=== PATIENT | female | born 1990 | race African-American/Black ===

== ENCOUNTER 2023-03-31 16:25 | Emergency (ER) | payer OTHER, SELFPAY ==
[2023-03-31 17:26] VITALS: BP 148/80; PULSE 78; RESP 16; TEMP 36.9; O2SAT 100; BMI 33.8
--- NOTE | 2023-03-31 17:26 | ED.EAR ---
HPI - Ear Problem General Chief complaint: Ear Problems Stated complaint: Ear pain Time Seen by Provider: 03/31/23 17:37 Source: patient Mode of arrival: ambulatory Limitations: no limitations History of Present Illness HPI Narrative: Patient is a 32-year-old female who presents to the emergency department for evaluation of ear pain, she reports that 10 days ago to urgent care, received ear drops and motrin without improvement. 6 days ago she saw PCP, was having worsening pain to the left ear, facial swelling, muffled hearing, she was given a prescription for Augmentin (ten-day course) as well as tramadol. Pain has improved to left ear, but muffled hearing still present. However, she came here today because She is currently reporting pain to the right ear, onset yesterday, and is having muffled hearing and pressure, with active drainage similar to the left. She is awaiting evaluation from an market researcher. Review of Systems Review of Systems: Yes all other systems are reviewed and are negative PMFSH Past Medical History Attestation statement: The following information was validated with the patient. Source: old records reviewed Social History Social History Advance Directives: No Advance Directives Information Provided: No Physical Exam Vital Signs: Vital Signs: Last Vital Signs Temp 98.5 F 03/31/23 17:26 Pulse 78 03/31/23 17:26 Resp 16 03/31/23 17:26 BP 148/80 H 03/31/23 17:26 Pulse Ox 100 03/31/23 17:26 O2 Del Method Room Air 03/31/23 17:26 BMI result Body Mass Index 33.8 Appearance: Alert.?Oriented to person, place and time. No acute distress.?Normal affect. Head: Normocephalic, atraumatic. No head, sinus or TMJ tenderness.? Eyes: Sclera white, conjunctiva pink. PERRL, 3 mm bilaterally. Ears: Bilateral ear canals with copious amounts of purulent drainage, difficulty visualizing TM bilaterally with drainage. No mastoid tenderness. No lymphadenopathy. Nose: Nasal mucosa pink and moist with midline septum, nares patent bilaterally.? Mouth/ Throat: Oral mucosa pink and moist without lesions. Pharynx without exudate, tonsils symmetric, no adenopathy.? Neck: Normal inspection.? Neck supple.?? CVS: Heart sounds normal. Normal heart rate and rhythm.? Pulses normal.?? Respiratory: No respiratory distress.? Lung sounds clear to auscultation bilaterally?? Abdomen: Soft and non-tender. Normoactive bowel sounds. Skin: Skin warm and dry.? Normal skin color.? ?? Extremities: No lower extremity edema.? Neuro: Moves all extremities spontaneously. Sensation intact bilaterally. No focal neuro deficits. Ambulates with normal steady gait. Medical Decision Making Medical Decision Making [facility] Narrative: Patient is a 32-year-old female who presents emergency department for evaluation of ear pain as noted in HPI. History of physical examination most consistent with acute otitis media, it is unclear whether spontaneous rupture of tympanic membrane has occurred as this is difficult to visualize due to copious drainage. Drainage may in part be in relation to otitis externa, however was previously receiving antibiotic ear drops which were discontinued due to concern for potential ruptured TM. Physical examination not consistent with mastoiditis, low suspicion for malignant otitis externa. She is nontoxic, afebrile, without tachycardia. She is already prescribed a course of Augmentin, at this time would not add any additional antibiotics, advised outpatient follow-up with her PCP/ENT specialist. Reviewed worrisome signs and symptoms that would warrant re-evaluation in the emergency department. Stable for discharge. Differential Diagnosis Differential Diagnoses: The differential diagnosis associated with the presentation includes (Acute otitis media with or without spontaneous rupture of the tympanic membrane, otitis media with effusion, otitis externa, herpes zoster, malignant otitis externa) Tests considered The following testing was considered but not selected: I considered serum labs and possible CT for evaluation mastoiditis physical examination is not consistent, nontoxic, afebrile as noted in MDM, labs and imaging deferred at this time Prescription Management I considered prescription management with: Pain Medication (However patient is already prescribed tramadol by PCP, would not add additional prescription medications aside from OTC acetaminophen/ibuprofen) and Antibiotic (Currently prescribed Augmentin, advised to continue taking course in its entirety) Discharge Plan Discharge Clinical Impression: Acute otitis media Qualifiers: Laterality: bilateral Patient Disposition: Home, Self-Care Instructions: Ear Infection (ED) Additional Instructions: As discussed, please continue taking the antibiotics as prescribed by your primary care provider. Please contact their office/the market researcher tomorrow to arrange for follow-up. You can take ibuprofen 200 mg, 3 tablets (600mg) every 6-8 hours as needed for pain, in addition to Tylenol 500 mg, 2 tablets (1,000mg) every 4-6 hours as needed for pain, but not to exceed 3 doses daily (3,000mg).? If you develop fevers, shaking chills, confusion, lightheadedness, severe headache, nausea with persistent vomiting, or any new/worsening symptoms or concerns you may return back to emergency department for evaluation. Interventions: ED Discharge Assessment Last Done: 03/31/23 18:22 Discharge Date/Time: 03/31/23 18:23
== END 2023-03-31 18:23 | disposition home or self-care (01) ==
PROVIDERS: Emergency Provider Internal Medicine
DX: H66.93 Otitis media, unspecified, bilateral (principal); H92.03 Otalgia, bilateral
CPT/HCPCS: 99282

== ENCOUNTER 2024-06-26 08:50 | Emergency (ER) | payer OTHER, SELFPAY ==
[2024-06-26 09:11] VITALS: BP 154/80; PULSE 77; RESP 16; TEMP 37; O2SAT 100; BMI 33.8
--- NOTE | 2024-06-26 09:34 | ED_ITS ---
HPI - General Adult General Chief complaint: Extremity Problem Stated complaint: Infected toe Time Seen by Provider: 06/26/24 09:33 Source: patient Mode of arrival: ambulatory Limitations: no limitations History of Present Illness ED Provider: Camilla Davenport PA-C HPI narrative: Patient is a 33 year old assigned female at with no reported medical history presenting to the emergency department today with right great toe swelling. Patient states that over a week ago she had her toes done and the next day she began to have swelling of the right great toe. Patient states that she was seen at an urgent care where they prescribed her an antibiotic. Patient states that she finished it but the swelling came back so she saw her PCP yesterday who prescribed doxycycline and keflex. Patient states that she wanted another opinion on the toe to make sure nothing needs to be done. Patient denies any dizziness, lightheadedness, abdominal pain, nausea, vomiting, fever, chills, blurry vision, double vision, loss of vision, chest pain, difficulty breathing, shortness of breath, back pain, night sweats, pain with urination, increased urinary frequency, increased urinary urgency, blood in her urine or stool, syncope or a near syncopal episode, recent trauma or falls, bowel incontinence, bladder incontinence, or any other complaints at this time. Relieving factors: none Exacerbating factors: none Associated symptoms: denies other symptoms Related Data Allergies Allergy/AdvReac Type Severity Reaction Status Date / Time No Known Allergies Allergy Verified 06/26/24 09:16 Review of Systems Constitutional: Constitutional: Reports no additional constitutional complaints, Denies chills, Denies fever(s) and Denies night sweats Eyes: Eyes: Reports no additional eye complaints, Denies blurry vision, Denies change in vision, Denies diplopia, Denies eye discharge, Denies loss of vision and Denies eye pain ENT: Denies dizziness Cardiovascular: Cardiovascular: Reports no additional cardiovascular complaints, Denies chest pain, Denies lightheadedness, Denies Loss of Consciousness and Denies dyspnea Respiratory: Respiratory: Reports no additional respiratory complaints and Denies dyspnea Gastrointestinal: Gastrointestinal: Reports no additional gastrointestinal complaints, Denies abdominal pain, Denies melena, Denies hematochezia, Denies change in bowel habits and Denies change in stool character Genitourinary: Genitourinary: Denies hematuria, Denies urinary frequency, Denies dysuria, Denies urinary incontinence, Denies urinary hesitancy and Denies urinary urgency Musculoskeletal: Musculoskeletal: Reports no additional musculoskeletal complaints, Denies numbness and Denies tingling Integumentary/Breasts: Comments: right great toe pain / swelling Neurologic: Denies dizziness, Denies loss of vision, Denies numbness and Denies tingling Psychiatric: Psychiatric: Reports no additional psychiatric complaints Endocrine: Endocrine: Reports no additional endocrine complaints Hematologic/Lymphatic: Hematologic/Lymphatic: Reports no additional hematologic/lymphatic complaints Allergic/Immunologic: Allergic/Immunologic: Reports no additional allergic/immunologic complaints [facility] Past Medical History Attestation statement: The following information was validated with the patient. Source: old records reviewed and nursing notes reviewed Social History Social History Advance Directives: No Advance Directives Information Provided: Yes Physical Exam ED Vital Signs: Vital Signs - 24 hr 06/26/24 09:11 06/26/24 10:16 Temperature 98.6 F 98.2 F Pulse Rate 77 89 Respiratory Rate 16 18 Blood Pressure 154/80 H 140/80 H Pulse Oximetry 100 99 Oxygen Delivery Method Room Air Room Air BMI result Body Mass Index 33.8 Const General: cooperative, no acute distress, alert and awake Nutritional Appearance: well nourished Orientation/consciousness: patient oriented x3 Limitations: no limitations HENMT Head: Yes normal to inspection and Yes atraumatic Ears: hearing grossly normal bilaterally and external ears normal General nose exam: Normal external nose present, no nasal discharge noted and no epistaxis Face and sinus: Yes normal facial exam, No abrasion and No laceration Mouth: Normal oral and palatal mucosa present, no drooling and no muffled voice Eyes General: appearance normal, both eyes and all related structures Periorbital: periorbital findings normal Eyelids: Yes eyelids normal Conjunctivae: conjunctivae normal Pupils: Equal, round and reactive pupils present EOM: EOMs intact bilaterally Neck Neck: Yes normal visual inspection, Yes full ROM and Yes no lymphadenopathy Chest Chest palpation & inspection: normal inspection of the chest Resp Effort & Inspection: normal respiratory effort and able to speak in complete sentences GI Inspection: Yes normal to inspection Neuro General: patient oriented x3 and moves all extremities Cranial nerves: Yes Equal, round and reactive pupils present Cognition (Neuro): normal cognition Extrem Other: minimal swelling and erythema to the dorsal right great toe - no fluctuance General: Yes full ROM and Yes capillary refill normal Psych Appearance: grossly normal Mental Status: mental status grossly normal Affect: normal affect Attitude: cooperative Thought process: Normal thought process present Thought content: Normal thought content present Insight: Good insight present (Psych) Medical Decision Making Medical Decision Making [facility] Narrative: Patient is a 33 year old assigned female at with no reported medical history presenting to the emergency department today with right great toe pain. Patient's physical exam was as noted in the physical exam portion of this note. I explained my physical exam findings to the patient. I answered all questions asked by the patient. I stressed the importance of the patient taking her me dication as directed (either prescribed or as the over the counter packaging recommends). I stressed the importance of the patient following up with her primary care provider. I stressed the importance of the patient returning to the emergency department immediately if her symptoms were to worsen or if she were to develop any dizziness, shortness of breath, difficulty breathing, chest pain, blurry vision, loss of vision, nausea, vomiting, abdominal pain, fever, chills, back pain, or any other complaints. Patient verbalized agreement and understanding with this treatment plan and discharge. Differential Diagnosis Differential Diagnoses: The differential diagnosis associated with the presentation includes Paronychia of the toe Admission/Observation Consideration of admission/observation: Escalation of care including admission/observation considered Patient would have been admitted to the hospital had her clinical presentation warranted hospital admission. Prescription Management I considered prescription management with: Antibiotic (patient directed to take the antibiotics prescribed by her PCP) Discharge Plan Discharge Clinical Impression: Paronychia of great toe Patient Disposition: Home, Self-Care Instructions: Paronychia (ED) Additional Instructions: Unfortunately - the area is not fluctuant and should not be drained at this time. Apply warm compresses to the area. Continue the antibiotic as prescribed by your PCP. Follow up with your primary care provider and land surveying party chief (sales order specialist). Return to the emergency department immediately if your symptoms worsen or if you develop any dizziness, shortness of breath, difficulty breathing, chest pain, blurry vision, loss of vision, nausea, vomiting, abdominal pain, fever, chills, back pain, or any other complaints. Referrals: Zhen Hassan DPM [Physician] - (Call to establish and follow up with a land surveying party chief (sales order specialist).) Sabas Lucio MD [Primary Care Provider] - Stand Alone Forms: Work/School Release Interventions: ED Discharge Assessment Last Done: 06/26/24 10:16 Discharge Date/Time: 06/26/24 10:16 Print Language: [place]
[2024-06-26 10:16] VITALS: BP 140/80; PULSE 89; RESP 18; TEMP 36.8; O2SAT 99
== END 2024-06-26 10:16 | disposition home or self-care (01) ==
PROVIDERS: Emergency Provider Emergency Medicine; PCP Internal Medicine
DX: L03.031 Cellulitis of right toe (principal)
CPT/HCPCS: 99282